=== PATIENT | female | born 1960 | race Caucasian/White ===

== ENCOUNTER 2019-04-26 16:32 | Emergency (ER) | payer OTHER ==
[~2019-04-26] VITALS: Ht 175.3 cm; Wt 81.6 kg
[2019-04-26 16:48] VITALS: BP 119/57
[2019-04-26] MEDS ORDERED: OXYC5TAB4 PO (17:22)
--- NOTE | 2019-04-26 17:27 | PHYS DOC ---
Past History Past Medical History: Depression, Liver Disease, Other Additional Past Medical Histor: LIVER TRANPLANT Past Surgical History: Cholecystectomy, , Tubal ligation, Other Additional Past Surgical Histo: LIVER TRANSPLANT Alcohol Use: None Drug Use: None Adult General Chief Complaint Chief Complaint: [facility] HPI Patient is a 58-year-old female with a prior history of a liver transplant on Prograf very stable presenting with left upper posterior scapular area pain she was in [place] visiting a new grandchild she was holding the child for a few days straight she developed muscle tightness and pain just medial to her left scapula she tells me she got a massage that felt somewhat better but she woke up yesterday with lateral neck pain points to the trapezius area and now pain is shooting and radiating down to the elbow and even to the fingers at times it is a deep gnawing throbbing pain she thinks it is a pinched nerve she is a retired nurse there is no chest pain there is no shortness of breath she has used Tyleno l with no significant relief she does not have a history of this before there is no urinary symptoms no lower extremity symptoms no recent chiropractor. Review of Systems Review of Systems Constitutional: Denies fever or chills [] Eyes: Denies change in visual acuity, redness, or eye pain [] HENT: Denies nasal congestion or sore throat [] Respiratory: Denies cough or shortness of breath [] Cardiovascular: No additional information not addressed in HPI [] GI: Neurologic: Denies headache, focal weakness or sensory changes [] Endocrine: Denies polyuria or polydipsia [] All other systems were reviewed and found to be within normal limits, except as documented in this note. Allergies Allergies Allergies Coded Allergies Type Severity Reaction Last Updated Verified No Known Drug Allergies 04/26/19 No Physical Exam Physical Exam Constitutional: Well developed, well nourished, no acute distress, non-toxic appearance. [] HENT: Normocephalic, atraumatic, bilateral external ears normal, oropharynx moist, no oral exudates, nose normal. [] Eyes: PERRLA, EOMI, conjunctiva normal, no discharge. [] Neck: Normal range of motion, mild trapezius tenderness on the left no focal midline tenderness, supple, no stridor. [] Cardiovascular:Heart rate regular rhythm, no murmur [] Lungs & Thorax: Bilateral breath sounds clear to auscultation [] Abdomen: Bowel sounds normal, soft, no tenderness, no masses, no pulsatile masses. [] Skin: Warm, dry, no erythema, no rash. [] Back tenderness to palpation in the paraspinous area just above and medial to th e left scapula. Distal sensation and motor function of the left hand is intact radial pulses intact there Extremities: No tenderness, no cyanosis, no clubbing, ROM intact, no edema. [] Neurologic: Alert and oriented X 3, normal motor function, normal sensory function, no focal deficits noted. [] Psychologic: Affect normal, judgement normal, mood normal. [] Current Patient Data Vital Signs Vital Signs Date Time Temp Pulse Resp B/P (MAP) Pulse Ox O2 Delivery O2 Flow Rate FiO2 04/26/19 16:48 97.5 75 18 100 Room Air Lab Results TAKING EXTRA STRENGTH TYLENOL WITH NO RELIEF. Distress * Mild Temperature (Fahrenheit): * 97.5 degrees F (97.6-99.5) L Patient Temperature * 97.5 degrees F (97.5-99.5) L Temperature Source * Oral Blood Pressure Systolic * 119 mm Hg (100-140) Blood Pressure Diastolic * 57 mm Hg (60-100) L Blood Pressure Mean * 77 mm Hg Blood Pressure Location * Right Arm Blood Pressure Source * Automatic Cuff Pulse Rate * 75 beats per minute (60-90) Pulse Assessment Method * Monitor Respiratory Rate * 18 breaths per minute (12-24) Oxygen Delivery Method * Room Air Bedside Pulse Oximetry * 100 % Treatment Prior to Arrival * No Complaint of Pain * Yes EKG EKG [] Radiology/Procedures Radiology/Procedures [] Course & Med Decision Making Course & Med Decision Making Pertinent Labs and Imaging studies reviewed. (See chart for details) []Well-appearing neurologically intact suspect radicular pain no trauma I don't think that she needs any imaging at this time she is neurologically intact trial of oxycodone pain medication recommend follow-up with primary care doctor for further evaluation including MRI and further workup should the presumed radiculopathy not be improved in the next few days. Dragon Disclaimer Dragon Disclaimer This electronic medical record was generated, in whole or in part, using a voice recognition dictation system. Departure Departure: Impression: Primary Impression: Radiculopathy Disposition: HOME, SELF-CARE Condition: STABLE Patient Instructions: Radicular Pain Scripts Oxycodone Hcl (OXYCODONE HCL IMMED.RELEASE ) 5 Mg Tablet 5 MG PO PRN Q4HRS PRN for PAIN, #15 TAB Prov: CHRISTIANO YUN MD 04/26/19 CHRISTIANO YUN MD Apr 26, 2019 17:27
== END 2019-04-26 17:26 | disposition home or self-care (01) ==
LOC: ER 16:32
DX: M54.10 Radiculopathy, site unspecified (principal)
CPT/HCPCS: 99283